=== PATIENT | female | born 1970 | race Caucasian/White ===

== ENCOUNTER 2020-09-07 07:27 | Outpatient (CLI) | payer BC, SELFPAY ==
--- NOTE | ~2020-09-07 | MM_ITS ---
EXAMINATION: MM screening [facility] BI w bev HISTORY: Screening mammogram TECHNIQUE: Craniocaudal and mediolateral oblique 3-D tomosynthesis images were obtained and synthetic 2-D images were generated. Bilateral rotated lateral cc views. CAD analysis was submitted and interp reted. COMPARISON: 08/20/2019, 08/03/2018, 09/12/2015 bilateral digital screening mammogram examinations BREAST PARENCHYMAL COMPOSITION: The breasts are heterogeneously dense, which may obscure small masses . FINDINGS: There is no evidence of suspicious mass, calcification, or architectural distortion to sugg est malignancy in either breast. There has been no suspicious interval change. IMPRESSION: 1. No mammographic evidence of malignancy. 2. Recommend routine screening mammography in one year. BI-RADS Category 1: Negative Reviewed, dictated and finalized at location A.
== END 2020-09-07 07:28 | disposition home or self-care (01) ==
PROVIDERS: PCP Family Medicine; Visit Provider Physician Assistant
DX: Z12.31 Encounter for screening mammogram for malignant neoplasm of breast (principal)
CPT/HCPCS: 77063; 77067

== ENCOUNTER 2021-03-15 11:00 | Outpatient (RCR) | payer BC, SELFPAY ==
--- NOTE | 2021-02-15 17:16 | PTOPEVAL ---
INITIAL PHYSICAL THERAPY EVALUATION and PLAN OF CARE Thank you for referring Oksana Mtz to [facility].? Oksana is scheduled to be seen for physical therapy?once every 2 weeks for 4 weeks. Please review, sign, date and return this plan of care NANDO. I agree with and certify that the following plan of care is medically necessary. Referring Physician Date Admitting Provider: Attending Provider: Stephanie Mccoy PA-C Referring Provider: *PT Outpatient Evaluation Start: 02/15/21 12:38 Freq: Status: Active Protocol: Document 02/15/21 12:35 TRISHA (Rec: 02/15/21 14:02 TRISHA [id number]) Therapy Assessment Status Assessment Status Assessment Status Evaluation Outpatient Past Medical History Past Medical History Source of Past Medical History Patient Cardiovascular History Hx Hypercholesterolemia Yes Evaluation Information Problem Diagnosis stress incontinence Onset 1st episode ~ 10 yrs ago - worsening last few months Subjective Information Oksana noticed around 10 yrs Query Text:As Reported By Patient/ ago some urinary leakage when Family she had to run to get out of the rain. But urinary leakage most noticeable last several months. Did say something to OB-PILOT BOAT DECKHAND MD - he said just do Kegels. She didn't know if she was doing them correctly. Saw an article about urinary incontinence and PT - asked JUAN ANTONIO Watson at regular visit - referred her to PT. Fall 2016 or 2017 - exercise class at work - then realized she was having some leakage - drops - which worsened as the class went on. For past year - has been home - comfortable with urinary control - but if she goes out will need to wear a pad, also feels like she needs to use the bathroom at the store when she just went prior to leaving her house. Prior Level of Function Activity Level (Last 3 Months) Occupation works at a computer, sitting at desk Hand Dominance Right Medications Home Meds (Include: OTC, RX, Vitamins, atorvastatin Herbals, Dose, Route,and Frequency) Query Text:Home Med Entries Will No Longer Recall From Past Visits. Home Me
--- NOTE | 2021-03-15 12:03 | PTOPEVAL ---
PHYSICAL THERAPY DISCHARGE SUMMARY Thank you for referring Oksana Mtz to [facility].? Oksana has been seen x 3 visits. She is progressing towards goals set, gaining levator ani strength, and able to perform urge and stress incontinence strategies. She is ready for d/c from PT to HEP. I agree with Oksana's discharge from PT. Referring Physician Date Admitting Provider: Attending Provider: Stephanie Mccoy PA-C Referring Provider: Therapy Assessment Status Assessment Status Assessment Status Discharge Evaluation Information Problem Diagnosis stress incontinence Subjective Information Oksana reports that she works Query Text:As Reported By Patient/ on the deep breathing, Family relaxation to limit bathroom visits at home. She will still use bathroom before leaving the house. Still wearing mini pads when going out - but they are usually dry . Does notice much harder to tighten pelvic floor muscles in standing than it is in sitting. Able to hold full bladder longer now and no leakage with activities. She hasn't coughed or sneezed much - but last time she did no leakage. Pain Assessment Timing of Pain Assessment Timing of Pain Assessment Assessment Self Report Self Report Pain Level 0 Pelvic Health Evaluation Pelvic Floor Assessment Sustained Levator Ani Strength 4/5 Quick Levator Ani Contraction in 15 10 Seconds Pelvic Health Therapy Pelvic Health Exercise Isolated Levator Ani Contraction sitting ther ex 10 ct hold/ Query Text:Position, Hold/Relaxation relax x 10 repsx1 Time, Repetitions Quick Contractions sitting x 10 reps-ther ex ball Query Text:Position, Repetitions in 15sec Therapeutic Ball side/side,front/back,CW/CCW 15 Query Text:Movement Direction, reps Repetitions Elevator Techniques going up 4 floors,5 ct holdx5 Query Text:Repetitions, Number of reps;going [id number] x5 reps; Steps Going Up, Number of Steps Going variablex5 reps Down Resistive 'Shh' Technique long, soft x 5 reps; quick, Query Text:Quick, Hard, Long, Soft, hard x 5 reps Number of Repetitions Other Exercises reviewed plies and standing Query Text:Record Sets, Repetitions, tightening pelvic floor - to Resistance and Position use ER and hip abduction for increased muscle length with hopes of feeling contra
== END 2021-05-01 10:15 | disposition home or self-care (01) ==
LOC: ANHPT 11:00
PROVIDERS: PCP Family Medicine; Visit Provider Physician Assistant
DX: N39.3 Stress incontinence (female) (male) (principal); E78.00 Pure hypercholesterolemia, unspecified
CPT/HCPCS: 97110; 97161

== ENCOUNTER 2021-09-07 01:30 | Day surgery (SDC) | payer BC, SELFPAY ==
[2021-08-22 10:30] VITALS: BMI 20.8
[2021-09-07 09:03] VITALS: BP 125/81; PULSE 98; RESP 16; TEMP 37.5; O2SAT 97; BMI 20.3
[2021-09-07] MEDS: LACTATED RINGERS 1,000 ML 150 ML IV CONT (09:16)
--- NOTE | 2021-09-07 09:31 | PM.HPGS ---
History of Present Illness History of Present Illness Consent: Risks, benefits, and alternatives have been discussed and questions answered. Patient agrees to proceed with procedure. Chief complaint: neoplasm screening Narrative: Oksana Mtz is a 51 year old female here for screening colonoscopy, had one normal in 2010 because IBS Review of Systems Constitutional: Constitutional: Denies headache(s) and Denies weakness Eyes: Eyes: Denies blurry vision ENT: Reports Normal hearing present, Denies headache(s) and Denies neck pain Cardiovascular: Cardiovascular: Denies chest pain and Denies dyspnea Respiratory: Respiratory: Denies dyspnea Gastrointestinal: Gastrointestinal: Reports no additional gastrointestinal complaints Genitourinary: Genitourinary: Denies dysuria Musculoskeletal: Musculoskeletal: Denies neck pain Integumentary/Breasts: Skin/Breast: Denies dry skin Neurologic: Reports Normal hearing present, Denies headache(s) and Denies weakness Psychiatric: Psychiatric: Denies anxiety Endocrine: Endocrine: Denies change in body appearance Hematologic/Lymphatic: Hematologic/Lymphatic: Denies easy bleeding Allergic/Immunologic: Allergic/Immunologic: Denies urticaria PMFSH Past Medical History Medical History (Updated 09/07/21 @ 09:32 by Charles Denton MD) Colon cancer screening Mammogram normal Pure hypercholesterolemia, unspecified Family History Family History Father Diabetes mellitus Hypertension Family history of elevated blood lipids Family history of coronary artery disease Grandparent Diabetes mellitus Mother Diabetes mellitus Family history of elevated blood lipids Sibling Family history of elevated blood lipids Social History Social History Smoking status: Never smoker Alcohol intake: current Living arrangements: with family Spiritual care concerns: No Meds Home Medications and Allergies Home Medications Medication Instructions Recorded Confirmed Type atorvastatin 10 mg tablet See Rx Instructions .ROUTE 06/05/21 09/07/21 Rx .COMPLEX #90 tablet Lactobac 40-Bifido 3-S.thermop 1 cap PO DAILY 08/22/21 09/07/21 History [Probiotic] calcium carbonate-vitamin D3 1 tablet PO DAILY 08/22/21 09/07/21 History [Calcium + D] multivitamin 1 tablet PO DAILY 08/22/21 09/07/21 History Allergies Allergy/AdvReac Type Severity Reaction Status Date / Time NKDA Allergy Unknown Unknown Uncoded 09/07/21 09:02 Vital Signs Vital Signs - 24 hr 09/07/21 09:03 Temperature 99.5 F Pulse Rate 98 Respiratory Rate 16 Blood Pressure 125/81 Pulse Oximetry 97 Exam Const: General: comfortable and no acute distress HENMT: General nose exam: Normal nares present Eyes: General: appearance normal, both eyes and all related structures Neck: Neck: no JVD Resp: Auscultation: clear to auscultation bilaterally Cardio: Rate: regular rate Rhythm: regular rhythm GI: Inspection: non-distended GI Palp: Yes Soft to palpation Skin: General skin exam: normal color Neuro: General: gait normal Speech: normal speech Extrem: General: normal to inspection Psych: Mental Status: mental status grossly normal Assessment and Plan Assessment and plan (1) Colon cancer screening: Code(s): Z12.11 - Encounter for screening for malignant neoplasm of colon Status: Acute Assessment and Plan: colonoscopy
[2021-09-07 09:58] VITALS: BP 103/64; PULSE 85; RESP 16; O2SAT 96
[2021-09-07 10:08] VITALS: BP 108/70; PULSE 76; RESP 16; O2SAT 100
[2021-09-07 10:18] VITALS: BP 119/76; PULSE 87; RESP 16; O2SAT 100
== END 2021-09-07 10:28 | disposition home or self-care (01) ==
PROVIDERS: PCP Family Medicine; Visit Provider Internal Medicine Gastroenterology
PROC: 0DJD8ZZ Inspection of Lower Intestinal Tract, Via Natural or Artificial Opening Endoscopic (ICD-10-PCS; CPT 45378; principal; 2021-09-07 10:00)
DX: Z12.11 Encounter for screening for malignant neoplasm of colon (principal); K63.5 Polyp of colon; K58.9 Irritable bowel syndrome, unspecified; E78.00 Pure hypercholesterolemia, unspecified
CPT/HCPCS: 45380; 88305; J2704; J7120

== ENCOUNTER 2021-09-11 07:38 | Outpatient (CLI) | payer BC, SELFPAY ==
--- NOTE | ~2021-09-11 | MM_ITS ---
EXAMINATION: MM screening kofi BI w bev HISTORY: Screening mammogram TECHNIQUE: Craniocaudal and mediolateral oblique 3-D tomosynthesis images were obtained and synthetic 2-D images were generated. CAD analysis was submitted and interpreted. COMPARISON: 09/07/2020, 08/20/2019, 07/24/2018 bilateral digital screening mammogram examinations BREAST PARENCHYMAL COMPOSITION: The breasts are heterogeneously dense, which may obscure small masses . FINDINGS: There is no evidence of suspicious mass, calcification, or architectural distortion to sugg est malignancy in either breast. There has been no suspicious interval change. IMPRESSION: 1. No mammographic evidence of malignancy. 2. Recommend routine screening mammography in one year. BI-RADS Category 1: Negative Reviewed, dictated and finalized at location A.
== END 2021-09-11 07:39 | disposition home or self-care (01) ==
PROVIDERS: PCP Family Medicine; Visit Provider Family Medicine
DX: Z12.31 Encounter for screening mammogram for malignant neoplasm of breast (principal)
CPT/HCPCS: 77063; 77067

== ENCOUNTER 2022-10-21 07:21 | Outpatient (CLI) | payer BC, SELFPAY ==
--- NOTE | ~2022-10-21 | MM_ITS ---
EXAMINATION: MM screening [facility] BI w bev HISTORY: Screening mammogram TECHNIQUE: Craniocaudal and mediolateral oblique 3-D tomosynthesis images were obtained and synthetic 2-D images were generated. CAD analysis was submitted and interpreted. COMPARISON: 09/11/2021, 09/07/2020, 08/20/2019 BREAST PARENCHYMAL COMPOSITION: The breasts are heterogeneously dense, which may obscure small masses . FINDINGS: No suspicious mass, calcification, or architectural distortion are identified in either mirza ast to suggest malignancy. There has been no suspicious interval change. IMPRESSION: 1. No mammographic evidence of malignancy. 2. Recommend routine screening mammography in one year. BI-RADS Category 1: Negative Reviewed, dictated and finalized at location A. CIPAL TECHNICAL ARCHITECT
== END 2022-10-21 07:22 | disposition home or self-care (01) ==
PROVIDERS: PCP Family Medicine; Visit Provider Family Medicine
DX: Z12.31 Encounter for screening mammogram for malignant neoplasm of breast (principal)
CPT/HCPCS: 77063; 77067

== ENCOUNTER → 2022-11-13 13:59 | Outpatient (CLI) | payer BC, SELFPAY ==
--- NOTE | ~2022-11-13 | XR_ITS ---
EXAMINATION: XR chest 2V Exam Date/Time: 11/13/2022 14:03 LIGHTING SPECIALIST HISTORY: cp under right breast flu positive 2 weeks ago sob Comparison: None available. RESULT: Lines, tubes, and devices: None. Lungs and pleura: Clear. Cardiomediastinal silhouette: Normal. Other: No acute osseous or upper abdominal finding. IMPRESSION: No acute cardiopulmonary process. Reviewed, dictated and finalized at location K. TING SPECIALIST
== END ==
PROVIDERS: PCP Clinical Nurse Specialist; Visit Provider Clinical Nurse Specialist
DX: R07.9 Chest pain, unspecified (principal); R06.02 Shortness of breath
CPT/HCPCS: 71046

== ENCOUNTER 2022-11-25 08:29 | Outpatient (CLI) | payer BC, SELFPAY ==
--- NOTE | 2022-11-25 08:40 | ECG_ITS ---
Measurements Intervals [place] Rate: 91 P: 76 OK: 114 QRS: 72 QRSD: 97 T: 44 QT: 352 QTc: 434 Interpretive Statements SINUS RHYTHM WITH SHORT OK INTERVAL INCOMPLETE RIGHT BUNDLE BRANCH BLOCK NONSPECIFIC ST & T-WAVE ABNORMALITY- ANTEROLAT/INF LEADS BASELINE ARTIFACT- I, II, III, AVR, AVL BORDERLINE ECG NO PREVIOUS ECG AVAILABLE FOR COMPARISON Electronically Signed On 11-25-2022 9:01:42 EQUIPMENT CLEANER by Jose Rodriguez D.O.
== END 2022-11-25 08:30 | disposition home or self-care (01) ==
PROVIDERS: PCP Family Medicine; Visit Provider Urology
DX: N39.3 Stress incontinence (female) (male) (principal); E78.5 Hyperlipidemia, unspecified; Z01.818 Encounter for other preprocedural examination; I45.10 Unspecified right bundle-branch block
CPT/HCPCS: 87086; 93005

== ENCOUNTER 2022-11-29 01:33 | Day surgery (SDC) | payer BC, SELFPAY ==
[2022-11-22 14:05] VITALS: BMI 20.8
--- NOTE | 2022-11-22 14:10 | PC.NURSE ---
Report to the Outpatient Waiting Room, entrance under the green pavilion located off [facility], at time 09:00AM on date 11-29-22. Planned Procedure Time: 11:00AM. Time changes happen often and if your time is changed the preop area will call you the afternoon before. - You and your visitor will be asked to self-screen and do not enter if you have any COVID symptoms. - Only one visitor is requested with a max of two and NO children visitors are allowed at this time. - The patient visitor may be requested to leave or wait in car when not with patient due to distancing restrictions. - A mask is optional within the hospital. Patients may have clear liquids (water, carbonated beverages, clear teas, apple juice) until 3 hours prior (08:00AM) to surgery with a maximum of 20 ounces. - No food from midnight until time of surgery Take the following medications with a SIP of water the morning of surgery: N/A Medications to discontinue per physician: VITAMINS, SUPPLEMENTS Date to take last dose 11-25-22 Please no make-up, nail hebrew, hairspray, perfume, deodorant, or body powder the day of surgery. No jewelry (including any body piercings) or valuables the day of surgery, leave them at home. Please take a shower or bath the night before, or the morning of, surgery with an antibacterial soap. Wear comfortable, loose fitting clothing. - Jewelry must be removed prior to entering the operating room. Rings and piercings that are not removed may be cut off. - The hospital will not accept responsibility for valuables. - Please leave all valuables, including medications, at home the day of surgery. If you are going home after surgery, a licensed jitney driver must drive you home. - NO public transportation without another adult if you receive anesthesia. - We recommend that an adult stay with you for 24 hours following discharge. - We also recommend that you do not drive, make important decision, drink alcoholic beverages, or take any drugs that were not prescribed by your health care provider for at least 24 hours after your discharge time. Follow any additional instructions given to you from your surgeon. If you or anyone in your household have experienced Covid symptoms in the past week, please notify your surgeon or the nurse liaison at the phone number below for possible testing. Telephone instructions given to PATIENT and asked if any additional questions and then verbalized understanding. Patient advised to call surgeon office or pre surgery nurse liaison [phone] if any additional questions.
--- NOTE | 2022-11-29 07:16 | WPDHPUPDATE1 ---
History and Physical Update Update Date/Time: 11/29/22 07:16 History and Physical has been reviewed, including an updated exam of the patient. There are NO changes in the patient's condition. Risks, benefits, and alternatives have been discussed and questions answered. Patient agrees to proceed with procedure.
--- NOTE | 2022-11-29 07:30 | PM.IMHP ---
H&P: HPI History of Present Illness Date/Time: 11/29/22 07:30 Chief Complaint: Stress incontinence Narrative: With a 52-year-old with stress incontinence who desires surgical intervention Review of Systems Review of Systems: All systems reviewed & are unremarkable except as noted in HPI and below PMFSH Past Medical History Medical History Colon cancer screening Mammogram normal Pure hypercholesterolemia, unspecified Family History Family History Father Diabetes mellitus Hypertension Family history of elevated blood lipids Family history of coronary artery disease Grandparent Diabetes mellitus Mother Diabetes mellitus Family history of elevated blood lipids Sibling Family history of elevated blood lipids Social History Social History Smoking status: Never smoker Second hand tobacco smoke exposure: No Alcohol intake: never Substance use: never Substance use type: does not use Lack of Transportation: No Lack of Food: Never True Current Housing: I Have Housing Concerned About Future Housing: No Difficulty Paying Gas/Electric Bills: No Difficulty Paying for Meds: No Currently Unemployed: No Education: Associate Degree Difficulty w/ Childcare or Family Care: No Living arrangements: with family Spiritual care concerns: No Agree to blood products: Yes Meds Home Medications and Allergies Home Medications Medication Instructions Recorded Confirmed Type Lactobacillus 40-Bifidobact 1 cap PO DAILY 08/22/21 11/22/22 History 3-S.thermophilus 100 billion cell capsule (Probiotic) calcium carbonate 600 mg-vitamin 1 tablet PO DAILY 08/22/21 11/22/22 History D3 5 mcg (200 unit) tablet multivitamin 1 tablet PO DAILY 08/22/21 11/22/22 History cetirizine 10 mg tablet (Zyrtec) 10 mg PO DAILY ALLERGIES 01/28/22 11/22/22 History atorvastatin 10 mg tablet See Rx Instructions .Route 09/09/22 11/22/22 Rx .COMPLEX #90 tabs fluticasone propionate 50 See Rx Instructions .Route 11/15/22 11/22/22 Rx mcg/actuation nasal .COMPLEX #48 grams spray,suspension Allergies Allergy/AdvReac Type Severity Reaction Status Date / Time No Known Allergies Allergy Verified 11/22/22 14:00 Exam Narrative: No acute distress Normal breathing Urethral hypermobility noted Assessment and Plan Assessment and plan (1) Stress incontinence: Code(s): N39.3 - Stress incontinence (female) (male) Status: Acute Assessment and Plan: Plan for urethral sling. Understands risks of bleeding, infection, lack of efficacy, urinary retention requiring sling revision, vaginal mesh extrusion, urinary tract mesh erosion, for leg pain, dyspareunia, recurrent or persistent stress incontinence. Agrees to proceed
--- NOTE | 2022-11-29 09:03 | WPDANESEPPF ---
Anes - Initial Pre Proc Eval Procedure: Operation Date: 11/29/22 10:00 Proposed Procedures p Urethral Sling - Mendel Adam MD Date/Time: 11/29/22 09:03 Surgeon: Mendel Adam MD Pre Op Diagnosis: stress incontinence Patient Data Age: 52 Gender: F Height: 1.63 m Weight: 55 kg Allergies Allergy/AdvReac Type Severity Reaction Status Date / Time No Known Allergies Allergy Verified 11/29/22 09:01 Home Medications Medication Instructions Recorded Confirmed Type Lactobacillus 40-Bifidobact 1 cap PO DAILY 08/22/21 11/22/22 History 3-S.thermophilus 100 billion cell capsule (Probiotic) calcium carbonate 600 mg-vitamin 1 tablet PO DAILY 08/22/21 11/22/22 History D3 5 mcg (200 unit) tablet multivitamin 1 tablet PO DAILY 08/22/21 11/22/22 History cetirizine 10 mg tablet (Zyrtec) 10 mg PO DAILY ALLERGIES 01/28/22 11/22/22 History atorvastatin 10 mg tablet See Rx Instructions .Route 09/09/22 11/22/22 Rx .COMPLEX #90 tabs fluticasone propionate 50 See Rx Instructions .Route 11/15/22 11/22/22 Rx mcg/actuation nasal .COMPLEX #48 grams spray,suspension Patient hx anesthesia problems: none Family hx anesthesia problems: none Results Review: All pre-operative results and documents have been reviewed as part of the pre-operative evaluation. [facility] Past Medical History Medical History Colon cancer screening Mammogram normal Pure hypercholesterolemia, unspecified Surgical History Surgical History (Updated 11/29/22 @ 09:04 by Norbert Kendall MD) H/O colonoscopy Family History Family History Father Diabetes mellitus Hypertension Family history of elevated blood lipids Family history of coronary artery disease Grandparent Diabetes mellitus Mother Diabetes mellitus Family history of elevated blood lipids Sibling Family history of elevated blood lipids Social History Social History Smoking status: Never smoker Second hand tobacco smoke exposure: No Alcohol intake: never Substance use: never Substance use type: does not use Lack of Transportation: No Lack of Food: Never True Current Housing: I Have Housing Concerned About Future Housing: No Difficulty Paying Gas/Electric Bills: No Difficulty Paying for Meds: No Currently Unemployed: No Education: Associate Degree Difficulty w/ Childcare or Family Care: No Living arrangements: with family Spiritual care concerns: No Agree to blood products: Yes Anes - Eval Final PreProcedure Day of Procedure 11/29/22 09:03 Patient weight: normal Heart: regular rate and rhythm Lungs: clear to auscultation Airway: Mallampati scale class II Neurological: alert and oriented Last oral intake: >/= 8 hours ASA classification: II Emergent: no Anesthetic plan: proceed Anesthesia type and monitoring: general GIVS and standard monitoring Results Review: All pre-operative results and documents have been reviewed as part of the pre-operative evaluation. Informed Consent: The patient's anesthetic plan and its attendant risks and benefits were discussed with the patient/family/POA. Questions were solicited and answers provided to the satisfaction of the patient/family/POA.
[2022-11-29 09:06] VITALS: BP 122/70; PULSE 82; RESP 16; TEMP 36.6; O2SAT 99
[2022-11-29] MEDS: LACTATED RINGERS 1,000 ML 30 ML IV CONT (09:12)
[2022-11-29] MEDS: ceFAZolin 2 GM/D5W 50 ML 2 GM/50 ML BAG IVPB (09:19)
[2022-11-29] MEDS: BUPIVACAINE/EPINEPHRINE 0.5% 30 ML VIAL INFILTRATE (09:34)
[2022-11-29 09:51] VITALS: BP 107/68; PULSE 101; RESP 10; O2SAT 96
[2022-11-29 10:20] VITALS: BP 125/78; PULSE 76; RESP 16
[2022-11-29 10:50] VITALS: BP 127/82; PULSE 82; RESP 16
[2022-11-29 11:20] VITALS: BP 125/78; PULSE 75; RESP 16
[2022-11-29] MEDS: oxyCODONE HCL (*CRX) 5 MG TAB IR PO (11:22)
[2022-11-29 11:43] VITALS: BP 126/77; PULSE 77; RESP 16
--- NOTE | 2022-12-08 15:27 | W.PM.PROC2 ---
Procedure Note - Detailed Date of Procedure 11/29/22 Pre-op Diagnosis stress incontinence Post-op Diagnosis Same Procedure Performed mid urethral sling cystoscopy Surgeon Mendel Adam MD Anesthesia MAC Indications This is a female with confirm stress urinary incontinence. She desires surgical correction. She understands the risks of bleeding, infection, injury to the urinary tract, vaginal mesh extrusion, urinary tract mesh erosion, obstructive voiding requiring a secondary procedure, hip and leg pain, dyspareunia, inability to improve overactive bladder symptoms. She agrees to proceed. Description of Procedure She was correctly identified. Informed consent obtained. She was brought the operating room. She was given appropriate anesthesia. She was given appropriate perioperative antibiotics. A time-out performed. I marked out the site of the inner thigh incisions. I anesthetized the skin and made those incisions. I anesthetized the anterior vaginal wall over the mid urethra. I made a 1 cm incision. I dissected out laterally taking great care not to injure the refilled vaginal wall. I passed the helical trocars. First on the left. Then on the right. I did this from the thigh incision towards the vaginal incision. The sling was connected to the trocars and brought out through the thigh incision. I tensioned the sling appropriately. I cut and the plastic sheaths. I then closed the incision with 2 0 Vicryl. On cystoscopy there is no tumors or surgical artifact. There was no surgical artifact in the urethra. I cut the excess sling material. Close incisions with glue. She was awakened and transferred to the PACU in stable condition. Implants Urethral sling Drains No Packing No Pathology None sent Complications No immediate complications Condition Stable Disposition PACU
== END 2022-11-29 11:50 | disposition home or self-care (01) ==
PROVIDERS: PCP Family Medicine; Visit Provider Urology
PROC: (CPT 57288; principal; 2022-11-29 10:00)
DX: N39.3 Stress incontinence (female) (male) (principal); E78.00 Pure hypercholesterolemia, unspecified
CPT/HCPCS: 57288; A9270; C1771; J0690; J2250; J2704; J7030; J7120

== ENCOUNTER 2023-12-19 07:33 | Outpatient (CLI) | payer BC, SELFPAY ==
--- NOTE | ~2023-12-19 | MM_ITS ---
EXAMINATION: MM screening [facility]ofi BI w bev HISTORY: Screening TECHNIQUE: Craniocaudal and mediolateral oblique 3-D tomosynthesis images were obtained and synthetic 2-D images were generated. CAD analysis was submitted and interpreted. COMPARISON: Comparison to multiple prior studies sequentially, with oldest reviewed study dated 08/18. BREAST PARENCHYMAL COMPOSITION: Dense: The breasts are heterogeneously dense, which may obscure small masses FINDINGS: There is no evidence of suspicious mass, calcification, or architectural distortion to sugg est malignancy in either breast. There has been no suspicious interval change. IMPRESSION: 1. No mammographic evidence of malignancy. 2. Recommend routine screening mammography in one year. BI-RADS Category 1: Negative Reviewed, dictated and finalized at location A. GER DELIVERY
== END 2023-12-19 07:34 | disposition home or self-care (01) ==
LOC: ANHIMG 07:35
PROVIDERS: PCP Family Medicine; Visit Provider Family Medicine
DX: Z12.31 Encounter for screening mammogram for malignant neoplasm of breast (principal)
CPT/HCPCS: 77063; 77067

== ENCOUNTER 2025-01-22 08:38 | Outpatient (CLI) | payer BC, SELFPAY ==
--- NOTE | ~2025-01-22 | MM_ITS ---
EXAMINATION: MM screening [facility]ofi BI w bev HISTORY: Screening mammogram TECHNIQUE: Craniocaudal and mediolateral oblique 3-D tomosynthesis images were obtained and synthetic 2-D images were generated. CAD analysis was submitted and interpreted. COMPARISON: 12/19/2023, 10/21/2022, 09/11/2021, 09/07/2020 BREAST PARENCHYMAL COMPOSITION:Dense: The breasts are heterogeneously dense, which may obscure small masses. FINDINGS: No suspicious mass, calcification, or architectural distortion are identified in either mirza ast to suggest malignancy. There has been no suspicious interval change. IMPRESSION: No mammographic evidence of malignancy. Recommend routine screening mammography in one year. BI-RADS Category 1: Negative Reviewed, dictated and finalized at location .
== END 2025-01-22 08:39 | disposition home or self-care (01) ==
LOC: ANHIMG 08:39
PROVIDERS: PCP Family Medicine; Visit Provider Family Medicine
DX: Z12.31 Encounter for screening mammogram for malignant neoplasm of breast (principal)
CPT/HCPCS: 77063; 77067

== ENCOUNTER 2025-09-23 14:19 | Outpatient (CLI) | payer BC, SELFPAY | END 2025-09-23 14:20 | disposition home or self-care (01) | LOC: ANHAUDIO 14:20 | PROVIDERS: PCP Family Medicine; Visit Provider Otolaryngology | DX: H69.90 Unspecified Eustachian tube disorder, unspecified ear (principal) | CPT/HCPCS: 92557; 92567 ==